=== PATIENT | male | born 1965 | race African-American/Black ===

== ENCOUNTER 2019-12-03 16:53 | Inpatient (IN) | payer OTHER ==
[~2019-12-03] VITALS: Ht 177.8 cm; Wt 109.0 kg
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
[2019-12-03 18:10] LABS: BASO % 0 % (0-3); EOS % 0 % (0-3); HEMATOCRIT 44.3 % (39.0-53.0); HEMOGLOBIN 14.7 g/dL (13.0-17.5); LYMPH # 0.8 x10^3/uL (1.0-4.8); LYMPH % 13 % (24-48); MEAN CORPUSCULAR HEMOGLOBIN 27 pg (25-35); MEAN CORPUSCULAR HGB CONC 33 g/dL (31-37); MEAN CORPUSCULAR VOLUME 82 fL (79-100); MONO # 0.5 x10^3/uL (0.0-1.1); MONO % 9 % (0-9); NEUT # 4.6 x10^3/uL (1.8-7.7); NEUT % 77 % (31-73); PLATELET COUNT 203 x10^3/uL (140-400); RED BLOOD COUNT 5.42 x10^6/uL (4.30-5.70); RED CELL DISTRIBUTION WIDTH 15.3 % (11.5-14.5); WHITE BLOOD COUNT 5.9 x10^3/uL (4.0-11.0)
[2019-12-03 18:20] LABS: CALCIUM 8.3 mg/dL (8.5-10.1); GFR 42.7
[2019-12-03 18:27] LABS: ALBUMIN 3.5 g/dL (3.4-5.0); ALBUMIN/GLOBULIN RATIO 0.8 (1.0-1.7); TOTAL BILIRUBIN 0.8 mg/dL (0.2-1.0); TOTAL PROTEIN 7.7 g/dL (6.4-8.2)
[2019-12-03] MEDS ORDERED: KETOROLAC 15 MG/ML VIAL. IVP ONE (18:30)
--- NOTE | 2019-12-03 19:42 | RAD ---
PORTABLE CHEST 1V Clinical History: Reason: SOA / Spl. Instructions: / History: Technique: AP view of the chest was obtained at 12/03/2019 5:19 PM. Comparison: None. Findings: There is linear opacities in the left lung base and obscuration of left hemidiaphragm. The pulmonary vasculature is normal. The heart is mildly enlarged. Impression: 1. Mild cardiomegaly. 2. Left lower lobe infiltrate could be CHF or pneumonia. Electronically signed by: Sanford Zaragoza III, MD (12/03/2019 7:39 PM) [facility]
[2019-12-03] MEDS ORDERED: AZITHROMYCIN 500 MG in IV NORMAL SALINE 250ML 250 ML IV SCH (20:00)
[2019-12-03] MEDS ORDERED: cefTRIAXone IV Push 1 GM VIAL. IVP ONE (20:00)
[2019-12-03] MEDS ORDERED: AZITHRMYCN 500MG IVPB FOR OMNI 250 ML IV ONE (20:15)
[2019-12-03 20:33] LABS: PROTHROMBIN TIME PATIENT 11.9 SEC (11.7-14.0)
--- NOTE | 2019-12-03 21:05 | RAD ---
CT of the chest without contrast: Clinical History: Reason: r/o effusion. soa / Spl. Instructions: / History: . Axial helical images of the chest were obtained without contrast. There is patchy opacities throughout the mid and lower left lung and there is linear and patchy opacities peripherally in the mid and lower right lung. There is no mediastinal or hilar lymphadenopathy. There is old fractures the left first and second ribs and there is a subacute appearing fracture of the posterior left 11th rib and an acute fracture of the posterior left 10th rib there is fusion of the first 3 ribs on the right the first 2 ribs on the left. There is S-shaped scoliosis of the thoracic spine there is no 12th rib on the left and there is a single rib arising on the right from the 10 and ninth vertebral bodies. 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 Impression: 1. S-shaped scoliosis of thoracic spine and multiple rib and vertebral body anomalies. 2. There is multiple rib fractures the left of different ages. 3. Bilateral pulmonary infiltrates are nonspecific. This could be chronic pulmonary fibrosis however atypical pneumonia is possible. End impression PQRS Compliance Statement: One or more of the following individualized dose reduction techniques were utilized for this examination: 1. Automated exposure control 2. Adjustment of the mA and/or kV according to patient size 3. Use of iterative reconstruction technique Electronically signed by: Sanford Zaragoza III, MD (12/03/2019 9:02 PM) [facility]
[2019-12-03 22:33] VITALS: BP 195/93
[2019-12-04] MEDS ORDERED: KETOROLAC 15 MG/ML VIAL. IVP PRN (03:00)
[2019-12-04 04:42] VITALS: BP 180/90
[2019-12-04] MEDS: ACETAMINOPHEN 325 MG TABLET. PO PRN ×3 (05:36→17:22)
[2019-12-04] MEDS: hydrALAZINE 20 MG/ML VIAL. IVP PRN ×3 (05:36→17:23)
[2019-12-04 07:00] VITALS: BP 149/82
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
[2019-12-04] MEDS ORDERED: CYCL10TA2 PO (10:18)
[2019-12-04] MEDS ORDERED: AMLO10TA8 PO (10:18)
--- NOTE | 2019-12-04 10:20 | NUR ---
Verified home medications with [facility]. Spoke with Sanford. Medication Reconciliation done.
[2019-12-04 11:05] VITALS: BP 168/79
[2019-12-04] MEDS ORDERED: guaiFENesin DM 200MG/20MG 10 ML SYRUP PO PRN (12:45)
[2019-12-04] MEDS ORDERED: traMADol 50 MG TABLET PO PRN (13:00)
[2019-12-04] MEDS: LIDOCAINE (700MG/PATCH) PATCH. TD SCH (13:10)
[2019-12-04] MEDS: amLODIPine BESYLATE 10 MG TABLET PO SCH (13:10)
[2019-12-04] MEDS: IV NORMAL SALINE 1000ML BAG 1,000 ML IV SCH (13:11)
[2019-12-04] MEDS: LABETALOL 20 MG/4 ML DISP.SYRIN. IVP PRN (14:59)
[2019-12-04] MEDS ORDERED: ACETAMINOPHEN 500 MG TABLET PO ONE (15:00)
[2019-12-04 15:07] VITALS: BP 180/84
[2019-12-04 19:54] VITALS: BP 172/79
[2019-12-04] MEDS: PATCH REMOVAL. MC SCH (21:00)
[2019-12-04] MEDS ORDERED: fentaNYL PF VIAL 100 MCG/2 ML VIAL IVP PRN (21:30)
[2019-12-04] MEDS: cefTRIAXone IV Push 1 GM VIAL. IVP SCH (22:00)
[2019-12-04] MEDS: ENOXAPARIN 40 MG/0.4 ML SYRINGE. SQ SCH (22:00)
[2019-12-04] MEDS: AZITHROMYCIN 500 MG in IV NORMAL SALINE 250ML 250 ML IV SCH (22:00)
[2019-12-04] MEDS: LACTOBACILLUS RHAMNOSUS GG 1 CAPSULE. PO SCH (22:01)
[2019-12-04] MEDS: CYCLOBENZAPRINE 10 MG TABLET. PO PRN (22:01)
[2019-12-04 23:25] VITALS: BP 179/86
[2019-12-05] VITALS (7 sets, daily range): BP systolic 107–201; BP diastolic 68–93
[2019-12-05] MEDS: IV NORMAL SALINE 1000ML BAG 1,000 ML IV SCH (02:45)
[2019-12-05] MEDS: ACETAMINOPHEN 325 MG TABLET. PO PRN ×4 (02:59→21:24)
[2019-12-05] MEDS: LABETALOL 20 MG/4 ML DISP.SYRIN. IVP PRN ×2 (03:00→08:17)
[2019-12-05 04:29] LABS: CALCIUM 8.1 mg/dL (8.5-10.1); CREATININE 1.9 mg/dL (0.7-1.3); GFR 45.3; POTASSIUM 3.9 mmol/L (3.5-5.1)
[2019-12-05] MEDS: ENOXAPARIN 40 MG/0.4 ML SYRINGE. SQ SCH ×2 (08:15→21:23)
[2019-12-05] MEDS: LACTOBACILLUS RHAMNOSUS GG 1 CAPSULE. PO SCH ×2 (08:17→21:23)
[2019-12-05] MEDS: amLODIPine BESYLATE 10 MG TABLET PO SCH (08:17)
[2019-12-05] MEDS: LIDOCAINE (700MG/PATCH) PATCH. TD SCH (08:18)
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
[2019-12-05 11:46] LABS: C-REACTIVE PROTEIN 75.2 mg/L (0-3.3)
[2019-12-05] MEDS: hydrALAZINE 10 MG TABLET PO SCH ×2 (14:36→21:23)
[2019-12-05] MEDS: NITROGLYCERIN OINT 1 GM PACKET. TP SCH ×3 (15:32→23:19)
[2019-12-05 15:42] LABS: MONONUCLEOSIS PATIENT NEGATIVE (NEGATIVE)
[2019-12-05] MEDS: PATCH REMOVAL. MC SCH (21:00)
[2019-12-05] MEDS: AZITHROMYCIN 500 MG in IV NORMAL SALINE 250ML 250 ML IV SCH (21:23)
[2019-12-05] MEDS: cefTRIAXone IV Push 1 GM VIAL. IVP SCH (21:23)
[2019-12-05] MEDS: CYCLOBENZAPRINE 10 MG TABLET. PO PRN (23:18)
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
[2019-12-06] VITALS (7 sets, daily range): BP systolic 158–195; BP diastolic 71–85
[2019-12-06] MEDS: NITROGLYCERIN OINT 1 GM PACKET. TP SCH ×4 (06:32→23:17)
[2019-12-06 08:16] LABS: BASO % 1 % (0-3); EOS % 0 % (0-3); HEMATOCRIT 38.3 % (39.0-53.0); HEMOGLOBIN 12.8 g/dL (13.0-17.5); LYMPH # 0.9 x10^3/uL (1.0-4.8); LYMPH % 17 % (24-48); MEAN CORPUSCULAR HEMOGLOBIN 27 pg (25-35); MEAN CORPUSCULAR HGB CONC 33 g/dL (31-37); MEAN CORPUSCULAR VOLUME 81 fL (79-100); MONO # 0.7 x10^3/uL (0.0-1.1); MONO % 14 % (0-9); NEUT # 3.7 x10^3/uL (1.8-7.7); NEUT % 69 % (31-73); PLATELET COUNT 234 x10^3/uL (140-400); RED BLOOD COUNT 4.74 x10^6/uL (4.30-5.70); RED CELL DISTRIBUTION WIDTH 14.9 % (11.5-14.5); WHITE BLOOD COUNT 5.3 x10^3/uL (4.0-11.0)
[2019-12-06 08:35] LABS: CALCIUM 8.5 mg/dL (8.5-10.1); CREATININE 1.9 mg/dL (0.7-1.3); GFR 45.3; POTASSIUM 3.9 mmol/L (3.5-5.1)
[2019-12-06] MEDS: ACETAMINOPHEN 325 MG TABLET. PO PRN ×3 (08:43→23:17)
[2019-12-06] MEDS: ENOXAPARIN 40 MG/0.4 ML SYRINGE. SQ SCH ×2 (08:43→20:46)
[2019-12-06] MEDS: LACTOBACILLUS RHAMNOSUS GG 1 CAPSULE. PO SCH ×2 (08:43→20:47)
[2019-12-06] MEDS: LIDOCAINE (700MG/PATCH) PATCH. TD SCH (08:43)
[2019-12-06] MEDS: amLODIPine BESYLATE 10 MG TABLET PO SCH (08:44)
[2019-12-06] MEDS: hydrALAZINE 10 MG TABLET PO SCH ×3 (08:44→20:47)
--- NOTE | 2019-12-06 09:59 | PDOC ---
Infectious Disease Note Vital Sign Vital Signs Vital Signs Date Time Temp Pulse Resp B/P (MAP) Pulse Ox O2 Delivery O2 Flow Rate FiO2 12/06/19 08:44 101 174/79 12/06/19 07:00 102.0 18 94 Room Air 102.0 Labs Lab Laboratory Tests Test 12/06/19 07:00 White Blood Count 5.3 x10^3/uL (4.0-11.0) Red Blood Count 4.74 x10^6/uL (4.30-5.70) Hemoglobin 12.8 g/dL (13.0-17.5) Hematocrit 38.3 % (39.0-53.0) Mean Corpuscular Volume 81 fL (79-100) Mean Corpuscular Hemoglobin 27 pg (25-35) Mean Corpuscular Hemoglobin Concent 33 g/dL (31-37) Red Cell Distribution Width 14.9 % (11.5-14.5) Platelet Count 234 x10^3/uL (140-400) Neutrophils (%) (Auto) 69 % (31-73) Lymphocytes (%) (Auto) 17 % (24-48) Monocytes (%) (Auto) 14 % (0-9) Eosinophils (%) (Auto) 0 % (0-3) Basophils (%) (Auto) 1 % (0-3) Neutrophils # (Auto) 3.7 x10^3/uL (1.8-7.7) Lymphocytes # (Auto) 0.9 x10^3/uL (1.0-4.8) Monocytes # (Auto) 0.7 x10^3/uL (0.0-1.1) Eosinophils # (Auto) 0.0 x10^3/uL (0.0-0.7) Basophils # (Auto) 0.0 x10^3/uL (0.0-0.2) Sodium Level 134 mmol/L (136-145) Potassium Level 3.9 mmol/L (3.5-5.1) Chloride Level 101 mmol/L (98-107) Carbon Dioxide Level 20 mmol/L (21-32) Anion Gap 13 (6-14) Blood Urea Nitrogen 16 mg/dL (8-26) Creatinine 1.9 mg/dL (0.7-1.3) Estimated GFR (Cockcroft-Gault) 45.3 Glucose Level 101 mg/dL (70-99) Calcium Level 8.5 mg/dL (8.5-10.1) Micro Microbiology 12/04/19 Blood Culture - Preliminary, Resulted NO GROWTH AFTER 2 DAYS Objective Assessment Fever - Likely viral COVID + 12/02 - on Room air YARI Obesity Tobacco abuse Plan Plan of Care Cont abx - wean soon Defer steroids/plasma/Remdesivir to Pulm F/u labs and cults D/w nursing Thank you # [id number] KAYKAY WRIGHT MD Dec 06, 2019 09:59
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
[2019-12-06] MEDS: LABETALOL 20 MG/4 ML DISP.SYRIN. IVP PRN (15:15)
--- NOTE | 2019-12-06 15:52 | NUR ---
Notified by gi technician that they are only doing urgent cases with patients who are positive. Per Dr. Moses, pt is not high risk and it is okay to cancel order for US at this time. Will continue to Monitor.
--- NOTE | 2019-12-06 17:32 | NUR ---
SW following. Reviewed chart and spoke with RN and CM. Pt on room air. Pt not ready for discharge per fever. Pt on IV abx. Pt COVID positive. SW to follow.
[2019-12-06] MEDS: cefTRIAXone IV Push 1 GM VIAL. IVP SCH (20:45)
[2019-12-06] MEDS: AZITHROMYCIN 500 MG in IV NORMAL SALINE 250ML 250 ML IV SCH (20:45)
[2019-12-06] MEDS: PATCH REMOVAL. MC SCH (20:47)
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
[2019-12-07 02:52] VITALS: BP 165/79
--- NOTE | 2019-12-07 03:37 | EKG ---
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
[2019-12-07 04:55] LABS: CALCIUM 8.9 mg/dL (8.5-10.1); CREATININE 1.9 mg/dL (0.7-1.3); GFR 45.3
[2019-12-07] MEDS: NITROGLYCERIN OINT 1 GM PACKET. TP SCH ×2 (06:50→12:00)
[2019-12-07 07:15] VITALS: BP 166/79
[2019-12-07] MEDS: amLODIPine BESYLATE 10 MG TABLET PO SCH (09:32)
[2019-12-07] MEDS: LACTOBACILLUS RHAMNOSUS GG 1 CAPSULE. PO SCH ×2 (09:32→21:44)
[2019-12-07] MEDS: hydrALAZINE 10 MG TABLET PO SCH ×3 (09:32→21:44)
[2019-12-07] MEDS: ENOXAPARIN 40 MG/0.4 ML SYRINGE. SQ SCH ×2 (09:32→21:45)
--- NOTE | 2019-12-07 09:32 | PDOC ---
Infectious Disease Note Subjective Subjective Constipated and not eating much but doesn't like the food Fever better. Pain controlled No SOA/rash/dysuria ROS ROS o/w neg Vital Sign Vital Signs Vital Signs Date Time Temp Pulse Resp B/P (MAP) Pulse Ox O2 Delivery O2 Flow Rate FiO2 12/07/19 07:15 99.2 95 18 166/79 (108) 92 Room Air 99.2 Physical Exam PHYSICAL EXAM CONSTITUTIONAL: He is lying in bed. He is cooperative. He is in no acute distress. He is comfortable. HEENT: Pupils are equal and reactive. He has normal conjunctivae. Oral cavity, pharynx has some dentures, otherwise is clear. NECK: Supple. No JVD. LUNGS: Decreased in the bases.No 02 HEART: S1, S2. ABDOMEN: Obese and soft. No guarding or rebound. EXTREMITIES: Without clubbing, cyanosis, or trace edema. SKIN: Warm without generalized signs of rash. He does have tattoos. NEUROLOGIC: He is nonfocal. PSYCHIATRIC: Affect is pleasant. Moves all extremities. Labs Lab Laboratory Tests Test 12/07/19 04:17 Sodium Level 136 mmol/L (136-145) Potassium Level 4.0 mmol/L (3.5-5.1) Chloride Level 103 mmol/L (98-107) Carbon Dioxide Level 23 mmol/L (21-32) Anion Gap 10 (6-14) Blood Urea Nitrogen 17 mg/dL (8-26) Creatinine 1.9 mg/dL (0.7-1.3) Estimated GFR (Cockcroft-Gault) 45.3 Glucose Level 94 mg/dL (70-99) Calcium Level 8.9 mg/dL (8.5-10.1) Micro Microbiology 12/04/19 Blood Culture - Preliminary, Resulted NO GROWTH AFTER 2 DAYS Objective Assessment Fever - Likely viral - cults neg -overall curve is better - could in part be constipation COVID + 12/02 - on Room air YARI -stable Obesity Tobacco abuse Plan Plan of Care D/cont abx - Constipation relief -Miralax ordered Defer steroids/plasma/Remdesivir to Pulm F/u labs and cults D/w nursing KAYKAY WRIGHT MD Dec 07, 2019 09:32
[2019-12-07] MEDS: LIDOCAINE (700MG/PATCH) PATCH. TD SCH (09:33)
[2019-12-07] MEDS: POLYETHYLENE GLYCOL 3350 17 GM PACKET. PO SCH (10:22)
[2019-12-07 11:06] VITALS: BP 165/75
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
[2019-12-07] MEDS: cloNIDine HCL 0.2 MG TABLET PO SCH ×2 (13:33→21:44)
[2019-12-07 15:04] VITALS: BP 123/60
--- NOTE | 2019-12-07 16:21 | NUR ---
SW following. Reviewed chart and spoke with RN. Pt on room air. Pt on IV Fentanyl. Pt to discharge home when stable. SW to follow as needed.
[2019-12-07 19:25] VITALS: BP 150/74
[2019-12-07] MEDS: PATCH REMOVAL. MC SCH (21:02)
[2019-12-07] MEDS: ACETAMINOPHEN 325 MG TABLET. PO PRN (21:45)
[2019-12-07 23:48] VITALS: BP 154/82
[2019-12-08 03:25] VITALS: BP 143/71
[2019-12-08] MEDS: ACETAMINOPHEN 325 MG TABLET. PO PRN (05:33)
[2019-12-08] MEDS: cloNIDine HCL 0.2 MG TABLET PO SCH (05:33)
[2019-12-08 07:14] VITALS: BP 120/75
--- NOTE | 2019-12-08 08:38 | PDOC ---
Infectious Disease Note Subjective Subjective Still Constipated but passing more flatus Fever better. Pain controlled No SOA/rash/dysuria ROS ROS o/w neg Vital Sign Vital Signs Vital Signs Date Time Temp Pulse Resp B/P (MAP) Pulse Ox O2 Delivery O2 Flow Rate FiO2 12/08/19 07:14 98.4 91 18 120/75 (90) 97 Room Air 98.4 Physical Exam PHYSICAL EXAM CONSTITUTIONAL: He is lying in bed. He is cooperative. He is in no acute distress. He is comfortable. HEENT: Pupils are equal and reactive. He has normal conjunctivae. Oral cavity, pharynx has some dentures, otherwise is clear. NECK: Supple. No JVD. LUNGS: Decreased in the bases.No 02 HEART: S1, S2. ABDOMEN: Obese and soft. No guarding or rebound. decreased but + BS EXTREMITIES: Without clubbing, cyanosis, or trace edema. SKIN: Warm without generalized signs of rash. He does have tattoos. NEUROLOGIC: He is nonfocal. PSYCHIATRIC: Affect is pleasant. Moves all extremities. Labs Micro Microbiology 12/04/19 Blood Culture - Preliminary, Resulted NO GROWTH AFTER 2 DAYS Objective Assessment Fever - Likely viral/constipation - cults neg -overall curve is better - clin ically doing well COVID + 12/02 - on Room air YARI -stable Obesity Tobacco abuse Plan Plan of Care Ok to d/c home from ID standpoint ID to sign off D/w nursing KAYKAY WRIGHT MD Dec 08, 2019 08:38
[2019-12-08] MEDS: LIDOCAINE (700MG/PATCH) PATCH. TD SCH (09:00)
[2019-12-08] MEDS ORDERED: LISINOPRIL 20 MG TABLET PO SCH (09:00)
[2019-12-08 09:07] LABS: BASO % 0 % (0-3); EOS # 0.1 x10^3/uL (0.0-0.7); EOS % 1 % (0-3); HEMOGLOBIN 13.6 g/dL (13.0-17.5); LYMPH % 13 % (24-48); MEAN CORPUSCULAR HEMOGLOBIN 27 pg (25-35); MEAN CORPUSCULAR HGB CONC 33 g/dL (31-37); MEAN CORPUSCULAR VOLUME 82 fL (79-100); MONO # 0.8 x10^3/uL (0.0-1.1); MONO % 10 % (0-9); NEUT % 77 % (31-73); PLATELET COUNT 312 x10^3/uL (140-400); RED BLOOD COUNT 5.02 x10^6/uL (4.30-5.70); RED CELL DISTRIBUTION WIDTH 15.2 % (11.5-14.5); WHITE BLOOD COUNT 7.9 x10^3/uL (4.0-11.0)
[2019-12-08 09:25] LABS: CREATININE 1.9 mg/dL (0.7-1.3); GFR 45.3; POTASSIUM 4.3 mmol/L (3.5-5.1)
[2019-12-08] MEDS: LACTOBACILLUS RHAMNOSUS GG 1 CAPSULE. PO SCH (09:36)
[2019-12-08] MEDS: ENOXAPARIN 40 MG/0.4 ML SYRINGE. SQ SCH (09:36)
[2019-12-08] MEDS: POLYETHYLENE GLYCOL 3350 17 GM PACKET. PO SCH (09:36)
[2019-12-08] MEDS: hydrALAZINE 10 MG TABLET PO SCH (09:37)
[2019-12-08] MEDS: amLODIPine BESYLATE 10 MG TABLET PO SCH (09:37)
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
[2019-12-08 11:10] VITALS: BP 155/77
[2019-12-08] MEDS ORDERED: PRED20TA PO ×3 (11:46→11:48)
--- NOTE | 2019-12-08 13:03 | NUR ---
PT DISCHARGED TO HOME. FRIEND PICKED HIM UP. DISCHARGE INSTRUCTIONS REVIEWED. HE VERBALIZED UNDERSTANDING.
--- NOTE | 2019-12-08 17:24 | NUR ---
SW following. Reviewed chart and spoke with RN. Pt to discharge home on room air and oral medications. No further SW needs at this time.
[2019-12-09] MEDS ORDERED: MULTIVITAMIN I-VITE TABLET. PO SCH (09:00)
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
--- NOTE | 2019-12-27 13:45 | DS ---
DATE OF DISCHARGE: 12/08/2019 ADMISSION DIAGNOSIS: Pneumonia. DISCHARGE DIAGNOSES: Resolving COVID-19 pneumonia, resolving acute kidney injury, sepsis, hypertension, multiple rib fractures. CONSULTS: Infectious Disease and Pulmonary. HOSPITAL COURSE: The patient is a pleasant middle-aged male, who presented with pneumonia. He ruled in for COVID-19. He also had several rib fractures. He was admitted. We gave him IV antibiotics, breathing treatments, vitamins, and steroids. Consulted Pulmonary. Over the next few days, he returned to his baseline. We discharged to home with close outpatient followup. DISPOSITION: Home. ACTIVITY: As tolerated. DIET: Low sodium. MEDICATIONS: Please see MRAD. TOTAL TIME: 34 minutes. GUS ARIAS DO DR: CHECO/hoang JOB#: [id number] / [id number]
== END 2019-12-08 13:03 | disposition home or self-care (01) | DRG 871 ==
LOC: ER 16:53 → 6 SOUTH 20:53
PROVIDERS: ADMIT Family Medicine; ATTEND Family Medicine
DX: A41.89 Other specified sepsis (principal); J12.89 Other viral pneumonia; U07.1 COVID-19; S22.42XA Multiple fractures of ribs, left side, initial encounter for closed fracture; N17.9 Acute kidney failure, unspecified; E66.9 Obesity, unspecified; F17.200 Nicotine dependence, unspecified, uncomplicated; I10 Essential (primary) hypertension; K59.00 Constipation, unspecified; M41.9 Scoliosis, unspecified; V29.9XXA Motorcycle rider (driver) (passenger) injured in unspecified traffic accident, initial encounter; Z68.34 Body mass index [BMI] 34.0-34.9, adult; Z82.49 Family history of ischemic heart disease and other diseases of the circulatory system
CPT/HCPCS: 36415; 71045; 71250; 80048; 80053; 82728; 83605; 84484; 85025; 85379; 85610; 85730; 86140; 86308; 87040; 93005; 96365; 96375; J0360; J0456; J0696; J1650; J1885; J3010; J3490; J7030; J7050; 99285-25; G0378; U0003-CS